=== PATIENT | female | born 1955 | race Caucasian/White ===

== ENCOUNTER → 2020-09-19 | Day surgery (SDC) | payer MEDICARE, BC ==
[~2020-09-19] MED LIST: ATOR10TA60 PO; CLIN300C9 PO; DULO30CA2 PO; GABA-585 PO; GLIP5TAB22 PO; IPRATRPIUM/ALBUTEROL 0.5/2.5MG 3 ML NEBU. NEB PRN; IV RINGERS SOLUTION,LACTATED 1,000 ML IV SCH; LIDOCAINE 2% PF 5 ML VIAL. ONE; MIDAZOLAM HCL PF 2 MG/2 ML VIAL. IV ONE; ONDANSETRON PF 4 MG/2 ML VIAL. IV PRN; PROPOFOL 10,000 MCG/ML (20ML) VIAL IV ONE; SITA1TAB11 PO; ZOLP10TA PO; [UNRECOGNIZED DRUG - REMARK]
[2020-09-19 12:08] VITALS: BP 135/73
--- NOTE | 2020-09-22 17:07 | PATHOLOGY ---
[facility] Accession Number: [id number] . 01 Material submitted: . PART A: sigmoid colon - DISTAL SIGMOID POLYP. Modifiers: distal PART B: hepatic flexure - HEPATIC FLEXURE POLYP PART C: colon - TRANSVERSE LIPOMA BIOPSY. Modifiers: transverse PART D: sigmoid colon - DISTAL SIGMOID POLYP HOT SNARE. Modifiers: distal . 01 Clinical history: . HISTORY OF POLYPS COLONOSCOPY . 02 Diagnosis: A. Colon biopsy, distal sigmoid polyp: - Tubular adenoma. . B. Colon biopsy, hepatic flexure polyp: - Hyperplastic polyp. . C. Colon biopsy, transverse colon lipoma: - Segment of colonic mucosa and small segment of benign adipose tissue consistent with submucosal lipoma. . D. Colon biopsy, distal sigmoid polyp: - Tubular adenoma. . (MARYM:marco; 09/22/2020) [facility] 09/22/2020 1412 Local . 02 Comment: There is no high-grade dysplasia or evidence of malignancy. (TOVA:marco; 09/22/2020) . 02 Electronically signed: . Leland Hsieh MD, Pathologist NPI- [id number] . 01 Gross description: . A. Received in formalin labeled "Ramiro Cadena, distal sigmoid polyp" is a sweet-brown soft tissue fragment measuring 0.7 x 0.5 x 0.1 cm. The specimen is submitted entirely in A1. . B. Received in formalin labeled "Ramiro Cadena, hepatic flexure polyp" are multiple sweet-brown soft tissue fragments measuring in aggregate 0.4 x 0.4 x 0.1 cm. The specimen is submitted entirely in B1. . C. Received in formalin labeled "Ramiro Cadena, transverse lipoma bx" are multiple sweet-brown soft tissue fragments measuring in aggregate 0.4 x 0.3 x 0.1 cm. The specimen is submitted entirely in C1. . D. Received in formalin labeled "Ramiro Cadena, distal sigmoid polyp" is a sweet-brown soft tissue fragment measuring 0.8 x 0.8 x 0.5 cm. The specimen is inked, bisect and submitted entirely in D1. (DARLIN; 09/21/2020) DARLIN/DARLIN 09/21/2020 2036 Local . 02 Pathologist provided ICD-10: D12.5, K63.5, D12.5 . 02 CPT . 075889, 230152, [id number], [id number] Specimen Comment: A courtesy copy of this report has been sent to [phone] Specimen Comment: [id number] Specimen Comment: Report sent to / DR CASTELLON Performed at: 01 [facility] [address], [place] [id number] MD Julio C Jeff MD Phone: [phone] Performed at: 02 [facility] [address], [place] [id number] MD Leland Hsieh MD Phone: [phone]
== END | disposition home or self-care (01) ==
LOC: SURG 10:01
PROVIDERS: ATTEND Internal Medicine Gastroenterology
DX: Z09 Encounter for follow-up examination after completed treatment for conditions other than malignant neoplasm (principal); K57.30 Diverticulosis of large intestine without perforation or abscess without bleeding; D12.5 Benign neoplasm of sigmoid colon; K63.89 Other specified diseases of intestine; E11.9 Type 2 diabetes mellitus without complications; F32.9 Major depressive disorder, single episode, unspecified; E66.01 Morbid (severe) obesity due to excess calories; E78.00 Pure hypercholesterolemia, unspecified; G47.33 Obstructive sleep apnea (adult) (pediatric); M19.90 Unspecified osteoarthritis, unspecified site; Z90.49 Acquired absence of other specified parts of digestive tract; Z86.010 Personal history of colon polyps; Z90.710 Acquired absence of both cervix and uterus; Z98.84 Bariatric surgery status; Z88.6 Allergy status to analgesic agent; Z79.899 Other long term (current) drug therapy; Z88.8 Allergy status to other drugs, medicaments and biological substances; Z91.048 Other nonmedicinal substance allergy status
CPT/HCPCS: 45380; 45385; 82947; J2001; J2704; J7120